=== PATIENT | female | born 1990 | race Caucasian/White ===

== ENCOUNTER → 2016-06-16 | Outpatient (REF) | LOC: WSOH 10:23 | DX: Z02.89 Encounter for other administrative examinations (principal) ==

== ENCOUNTER → 2016-06-18 | Outpatient (REF) | LOC: WSOH 10:00 | DX: Z02.89 Encounter for other administrative examinations (principal) ==

== ENCOUNTER → 2016-06-22 | Outpatient (REF) | LOC: WSOH 10:20 | DX: Z02.89 Encounter for other administrative examinations (principal) ==

== ENCOUNTER → 2016-06-24 | Outpatient (REF) | LOC: WSOH 16:00 | DX: Z02.89 Encounter for other administrative examinations (principal) ==

== ENCOUNTER → 2016-11-25 | Outpatient (REF) | LOC: WSOH 10:30 | DX: Z23 Encounter for immunization (principal) ==

== ENCOUNTER → 2017-01-08 | Outpatient (REF) | LOC: WSOH 14:17 | DX: Z02.89 Encounter for other administrative examinations (principal) ==

== ENCOUNTER → 2017-02-10 | Outpatient (REF) | LOC: WSOH 16:15 | DX: Z02.89 Encounter for other administrative examinations (principal) ==